=== PATIENT | male | born 1930 | race Two or more races ===

== ENCOUNTER 2017-02-19 10:50 | Emergency (ER) | payer MEDICARE, MEDICAID ==
[~2017-02-19] VITALS: Ht 165.1 cm; Wt 72.1 kg
[~2017-02-19 10:50] MED LIST: ASPI81CH43; ATOR20TA; DOCU100C24; DUTA0.5C11; INSLANTI; INSLISPI; MEGE40SU; OMEP20TA44; PROAIR; RAMI2.5C33; TAMS0.4C36; TIOTCAP; WARF2.5T
[2017-02-19 12:50] VITALS: BP 130/62
== END 2017-02-19 13:48 | disposition home or self-care (01) ==
LOC: ER 10:53
DX: N40.1 Benign prostatic hyperplasia with lower urinary tract symptoms (principal); R33.9 Retention of urine, unspecified; E11.9 Type 2 diabetes mellitus without complications; I10 Essential (primary) hypertension; E78.5 Hyperlipidemia, unspecified; Z86.73 Personal history of transient ischemic attack (TIA), and cerebral infarction without residual deficits; Z87.891 Personal history of nicotine dependence
CPT/HCPCS: 51702; 81002; 82962